=== PATIENT | female | born 2000 | race Caucasian/White ===

== ENCOUNTER 2022-09-09 20:49 | Emergency (ER) | payer MEDICAID ==
--- NOTE | 2022-09-09 22:14 | EDPHYS ---
Physician Documentation [facility] Name: Bina Rodriguez Age: 22 yrs Sex: Female : 2000 Arrival Date: 09/09/2022 Time: 20:50 Bed DIS2 Private MD: ED Physician Elier Hughes HPI: 09/09 22:10 This 22 yrs old Female presents to ER via Ambulatory with complaints of Urinary Problem.pm1 22:10 The patient presents with urinary symptoms, dysuria. Onset: The symptoms/episode pm1 began/occurred yesterday. Modifying factors: the symptoms are aggravated by urinating. Associated signs and symptoms: Pertinent negatives: fever, nausea, vomiting. Severity of symptoms: in the emergency department the symptoms are actually worse. The patient is sexually active. The patient has experienced similar episodes in the past, several times, prior UTI March of last year. The patient has not recently seen a physician. 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 - Social history:: Smoking status: Patient denies any tobacco usage or history of. ROS: 22:10 Positive for urinary symptoms, urinary frequency, burning with urination. pm1 22:10 Constitutional: Negative for fever, chills, and weight loss, Respiratory: Negative for shortness of breath, cough, wheezing, and pleuritic chest pain, Abdomen/GI: Negative for abdominal pain, nausea, vomiting, diarrhea, and constipation, Back: Negative for injury and pain, Skin: Negative for injury, rash, and discoloration, Neuro: Negative for headache, weakness, numbness, tingling, and seizure. 22:10 All other systems are negative. Exam: 22:10 Constitutional: This is a well developed, well nourished patient who is awake, alert, pm1 and in no acute distress. Head/Face: Normocephalic, atraumatic. 22:10 Skin: Warm, dry with normal turgor. Normal color with no rashes, no lesions, and no evidence of cellulitis. MS/ Extremity: Pulses equal, no cyanosis. Neurovascular intact. Full, normal range of motion. 22:10 Cardiovascular: Exam negative for acute changes, Rate: normal, Rhythm: regular, Pulses: no pulse deficits are appreciated. 22:10 Respiratory: Exam negative for acute changes, respiratory distress, shortness of breath. 22:10 Abdomen/GI: Inspection: abdomen appears normal, Palpation: abdomen is soft and non-tender, in all quadrants. 22:10 Back: Exam negative for acute changes, pain, is absent. 22:10 Neuro: Exam negative for acute changes, Orientation: is normal, Mentation: is normal, Motor: is normal, moves all fours. Vital Signs: 22:01 BP 99 / 61; Pulse 50; Resp 18; Temp 97.8; Pulse Ox 97% on R/A; Weight 72.57 kg; Height tw5 5 ft. 7 in. (170.18 cm); Pain 6/10; 22:01 Body Mass Index 25.06 (72.57 kg, 170.18 cm) tw5 MDM: 22:09 Differential diagnosis: UTI, pyelonephritis, STI. pm1 22:09 Data reviewed: vital signs. pm1 22:12 Counseling: I had a detailed discussion with the patient and/or guardian regarding: the pm1 historical points, exam findings, and any diagnostic results supporting the discharge/admit diagnosis, the need for outpatient follow up, to return to the emergency department if symptoms worsen or persist or if there are any questions or concerns that arise at home, urine culture in 2-3 days if resulted from urine micro. 22:13 Patient medically screened. pm1 09/09 22:07 Order name: Urine Microscopic Only; Complete Time: 23:45 tw5 09/09 22:56 Order name: Urine Dipstick-Ancillary; Complete Time: 23:08 EDMS 09/09 22:07 Order name: Urine Dipstick-Ancillary (obtain specimen); Complete Time: 22:58 tw5 09/09 23:08 Order name: Test, Serum; Complete Time: 23:45 pm1 09/09 23:45 Order name: Urine Culture EDMS Administered Medications: 22:19 Drug: Rocephin (cefTRIAXone) 1 grams Route: IM; Site: right ventrogluteal; tw5 Disposition: 09/10 01:19 Co-signature as Attending Physician, Elier Hughes MD I reviewed the patient's care rn provided by the Advanced Practice Provider and agree with the diagnosis and treatment plan. Disposition Summary: 09/09/22 22:13 Discharge Ordered Location: Home pm1 Problem: new pm1 Symptoms: have improved pm1 Condition: Stable pm1 Diagnosis - UTI/ Urinary tract infection, site not specified pm1 Followup: pm1 - With: Emergency Department - When: As needed - Reason: Worsening of condition Followup: pm1 - With: Private Physician - When: 2 - 3 days - Reason: Recheck today's complaints, Continuance of care, Re-evaluation by your physician Discharge Instructions: - Discharge Summary Sheet pm1 - Urinary Tract Infection, Adult pm1 Forms: - Medication Reconciliation Form pm1 - Thank You Letter pm1 - Antibiotic Education pm1 - Prescription Opioid Use pm1 Prescriptions: - Bactrim DS 800-160 mg Oral Tablet - take 1 tablet by ORAL route every 12 hours for 10 days; 20 tablet; Refills: 0, pm1 Product Selection Permitted - Pyridium 200 mg Oral Tablet - take 1 tablet by ORAL route every 8 hours for 3 days; 9 tablet; Refills: 0, pm1 Product Selection Permitted Signatures: Dispatcher [employer] EDElier Valencia MD MD rn Cholo Dixon, GAGE MAKER GAGE MAKER pm1 Rimma Mckee tw5 Corrections: (The following items were deleted from the chart) 09/09 22:07 22:05 PMHx: None; tw5 23:11 22:07 Urine Test ordered. tw5 bb
--- NOTE | 2022-09-09 22:14 | ER ---
Nurse's Notes [facility] Name: Bina Rodriguez Age: 22 yrs Sex: Female : 2000 Arrival Date: 09/09/2022 Time: 20:50 Bed DIS2 Private MD: Diagnosis: UTI/ Urinary tract infection, site not specified Presentation: 09/09 22:01 Chief complaint: Patient states: "I think I have a UTI, it feels like the usual tw5 symptoms, burning, frequency, discomfort. I started feeling this way around 9 PM last night.". Coronavirus screen: Vaccine status:. Ebola Screen: Patient negative for fever greater than or equal to 101.5 degrees Fahrenheit, and additional compatible Ebola Virus Disease symptoms Patient denies exposure to infectious person. Patient denies travel to an Ebola-affected area in the 21 days before illness onset. Initial Sepsis Screen: Does the patient meet any 2 criteria? No. Patient's initial sepsis screen is negative. Does the patient have a suspected source of infection? Yes: Dysuria/Frequency/Urgency/UTI. Risk Assessment: Do you want to hurt yourself or someone else? Patient reports no desire to harm self or others. Onset of symptoms was September 08, 2022 at 21:00. 22:01 Acuity: CARMEN 4 tw5 22:01 Method Of Arrival: Ambulatory tw5 Triage Assessment: 22:09 General: Appears in no apparent distress. Behavior is calm, cooperative, appropriate tw5 for age. Pain: Complains of pain in suprapubic area, right lower quadrant and left lower quadrant Pain currently is 6 out of 10 on a pain scale. 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 - Social history:: Smoking status: Patient denies any tobacco usage or history of. Assessment: 22:10 General: Appears in no apparent distress. Behavior is calm, cooperative, appropriate tw5 for age. Neuro: Level of Consciousness is awake, alert, obeys commands. 09/10 01:03 Reassessment: discharged by Cholo Dixon NP. bb Vital Signs: 09/09 22:01 BP 99 / 61; Pulse 50; Resp 18; Temp 97.8; Pulse Ox 97% on R/A; Weight 72.57 kg; Height tw5 5 ft. 7 in. (170.18 cm); Pain 6/10; 22:01 Body Mass Index 25.06 (72.57 kg, 170.18 cm) tw5 ED Course: 20:50 Patient arrived in ED. as 20:57 Cholo Dixon NP is PHCP. pm1 20:57 Elier Hughes MD is Attending Physician. pm1 22:05 Triage completed. tw5 22:09 Arm band placed on. tw5 23:21 Test, Serum Sent. bb 23:21 Initial lab(s) drawn, by ar, sent to lab. bb Administered Medications: 22:19 Drug: Rocephin (cefTRIAXone) 1 grams Route: IM; Site: right ventrogluteal; tw5 Outcome: 22:13 Discharge ordered by . pm1 09/10 01:04 Patient left the ED. bb Signatures: Liv Cabral Brenda RN RN bb Cholo Dixon NP SPECIAL CLIENT BUS DRIVER pm1 Rimma Mckee tw5 Corrections: (The following items were deleted from the chart) 09/09 22:07 22:05 PMHx: None; tw5 tw5
[2022-09-09] MEDS ORDERED: LIDOCAINE 1% MPF 2 ML AMPULE ONE (22:15)
[2022-09-09] MEDS ORDERED: CEFTRIAXONE 1000 MG/VIAL ONE (22:15)
[2022-09-09 22:56] LABS: Urine Blood Negative (Negative); Urine Glucose Negative (Negative); Urine Protein Negative (Negative); Urine Specific Gravity <=1.005 (1.005-1.030)
[2022-09-09 23:41] LABS: Urine Bacteria <20 /HPF (<20); Urine RBC None Seen /HPF (None Seen)
[2022-09-10 01:16] VITALS: BP 99/61; TEMP 97.8; O2SAT 97
== END 2022-09-10 01:04 | disposition home or self-care (01) ==
LOC: ER 20:49
DX: N39.0 Urinary tract infection, site not specified (principal)
CPT/HCPCS: 36415; 81003; 81015; 84703; 87086; 87088; 96372; 99283